=== PATIENT | female | born 1985 | race Caucasian/White ===

== ENCOUNTER → 2018-02-19 15:44 | Outpatient (CLI) | payer BC, SELFPAY | PROVIDERS: Visit Provider Physician Assistant | DX: R10.9 Unspecified abdominal pain (principal) | CPT/HCPCS: 83013 ==

== ENCOUNTER → 2020-12-11 18:30 | Outpatient (CLI) | payer BC, SELFPAY | PROVIDERS: Visit Provider Physician Assistant | DX: N34.3 Urethral syndrome, unspecified (principal) | CPT/HCPCS: 87077; 87086; 87186 ==

== ENCOUNTER → 2021-04-17 15:12 | Outpatient (CLI) | payer BC, SELFPAY ==
[2021-04-17 17:38] LABS: Urine N gonorrhoeae NOT DETECTED
[2021-04-17 17:41] LABS: Urine Chlamydia NOT DETECTED
== END ==
PROVIDERS: Visit Provider Nurse Practitioner
DX: R52 Pain, unspecified (principal); N89.8 Other specified noninflammatory disorders of vagina; N34.3 Urethral syndrome, unspecified
CPT/HCPCS: 87086; 87210; 87491; 87591

== ENCOUNTER → 2025-01-31 12:11 | Outpatient (CLI) | payer OTHER, SELFPAY ==
--- NOTE | 2025-01-31 12:14 | DI.RAD.S_ITS ---
PROCEDURE: XR FACIAL BONES MIN 3V INDICATIONS: trauma to face TECHNIQUE: 3 views of the facial bones were acquired. COMPARISON: None. FINDINGS: Sinuses: Visualized sinuses demonstrate no air-fluid levels or mucosal thickening. Bones: No fractures. No suspicious bony lesions. Orbital rims and zygomatic arches appear intact. Soft tissues: No suspicious soft tissue densities. IMPRESSION: No definite focal osseous lesion seen. If there was significant facial trauma, adequate assessment can be performed with CT. Dictated by: Bernardino Sanderson M.D. on 02/01/2025 at 18:24 Approved by: Bernardino Sanderson M.D. on 02/01/2025 at 18:25
== END ==
PROVIDERS: PCP Family Medicine; Referring Provider Family Medicine; Visit Provider Family Medicine
DX: S09.93XA Unspecified injury of face, initial encounter (principal); R49.0 Dysphonia; F32.1 Major depressive disorder, single episode, moderate; F41.1 Generalized anxiety disorder; Z31.89 Encounter for other procreative management; X58.XXXA Exposure to other specified factors, initial encounter
CPT/HCPCS: 70150